=== PATIENT | male | born 1980 | race Caucasian/White ===

== ENCOUNTER 2017-09-30 11:59 | Inpatient (IN) | payer OTHER ==
[2017-09-30] MEDS ORDERED: LORazepam 2 MG/ML SDV IVPUSH ONE (12:15)
[2017-09-30] MEDS ORDERED: Sodium Chloride 0.9% 1,000 ML IV SCH (12:15)
--- NOTE | 2017-09-30 12:18 | EDM.PDOC ---
ED HPI GENERAL MEDICAL PROBLEM - General Chief Complaint: Neuro Symptoms/Deficits Stated Complaint: SLURRED SPEECH Time Seen by Provider: 09/30/17 12:12 Source of Information: Reports: Patient History Limitations: Reports: No Limitations - History of Present Illness INITIAL COMMENTS - FREE TEXT/NARRATIVE: 37-year-old male presents to the ED with reported slurred speech very mild since he awoke on TuesdaySeptember 26. Symptoms have persisted for the most part of the week. He is also appreciated difficulty writing. He can think of the word but he still difficult for him to write the word so that its comprehensible. Patient has had chronic headaches for many months. Worse this last week particularly at the base of his skull. Perhaps mildly blurred vision at times. He is not known to be diabetic. He is known to have hypertension and is not sought treatment or ever been on medication for his blood pressure. Has no known heart disease. Does not smoke cigarettes. States his balance is fine he can drive the car just fine. No nausea vomiting. Does not normally wear eye glasses or contacts. No previous similar problems. States he can drink and eat and swallow normally. He is not losing any fluids out the corner of his face etc. Onset: Sudden Onset Date: 09/26/17 (Awoke with slurred speech and likely stone with thickened with difficulty writing on Tuesday.) Duration: Day(s): Location: Reports: Other (Neurological symptoms) Quality: Reports: Other (Appreciates difficulty with slurred speech at times and difficulty writing.) Severity: Mild Improves with: Reports: None Worsens with: Reports: None Context: Denies: Activity, Exercise, Lifting, Sick Contact, Trauma, Other Associated Symptoms: Reports: Headaches. Denies: Confusion, Chest Pain, Cough, cough w sputum, Diaphoresis, Fever/Chills, Loss of Appetite, Malaise, Nausea/ Vomiting, Rash, Seizure, Shortness of Breath, Syncope, Weakness Treatments [employer]: Reports: Other (see below) (Takes no medications.) Right Neck Pain Score (Numeric/FACES): 3 - Related Data Allergies Allergy/AdvReac Type Severity Reaction Status Date / Time No Known Allergies Allergy Verified 09/30/17 12:56 Home Meds: Home Meds . [No Known Home Meds] 09/30/17 [History] Past Medical History - Past Health History Medical/Surgical History: Denies Medical/Surgical History (He rarely ever sees a doctor.) Social & Family History - Living Situation & Occupation Occupation: Employed ED ROS GENERAL - Review of Systems Review Of Systems: See Below Constitutional: Denies: Fever, Chills, Malaise, Weakness, Fatigue, Night Sweats , Diaphoresis, Decreased Appetite, Weight Loss HEENT: Reports: Vision Change, Other (Appreciates that his tongue feels thick and is not working quite right speech sometimes comes out slurred.). Denies: Glasses, Hearing Loss (States he notices transient changes in vision like it's blurred at times. This is over the last week.) Respiratory: Reports: No Symptoms Cardiovascular: Reports: No Symptoms, Blood Pressure Problem. Denies: Chest Pain, Claudication, Dyspnea on Exertion, Edema, Lightheadedness, Orthopnea (Has been told he has high blood pressure in the past but has never been on medication for this.) Endocrine: Reports: Fatigue GI/Abdominal: Reports: No Symptoms : Reports: No Symptoms Musculoskeletal: Reports: No Symptoms Skin: Reports: No Symptoms Neurological: Reports: Headache (Daily headache currently 3 out of 10 mostly occipital base of skull.). Denies: Dizziness Psychiatric: Reports: Anxiety Hematologic/Lymphatic: Reports: No Symptoms Immunologic: Reports: No Symptoms ED EXAM, NEURO - Physical Exam Exam: See Below Exam Limited By: No Limitations General Appearance: Alert, WD/WN, Anxious (Quite anxious with a sinus tachycardia in the 140s.), Moderate Distress, Other (Initial BP is 265 /148) Eye Exam: Bilateral Eye: A-V [place] (Mild.), Normal Inspection, Papilledema ( no pailledema appreciated. ) Ears: Normal TMs, Other Throat/Mouth: Normal Inspection (There is scar tissue of both tympanic membranes from previous tympanostomy tubes. Right is larger than the left.), Normal Lips, Normal Teeth, Normal Oropharynx Head Exam: Atraumatic, Normocephalic Neck: Normal Inspection, Supple, Non-Tender, Full Range of Motion. No: Carotid Bruit, Lymphadenopathy (L), Lymphadenopathy (R) Respiratory/Chest: Lungs Clear, Normal Breath Sounds, No Accessory Muscle Use, Chest Non-Tender, Respiratory Distress Cardiovascular: No Edema, No Murmur, No Rub, Tachycardia GI/Abdominal: Normal Bowel Sounds, Soft, Non-Tender, No Organomegaly, Other ( Abdominal girth limits ability to palpate solid organs.) Neurological: Alert, Normal Mood/Affect, Normal Dorsiflexion, CN II-XII Intact, Normal Plantar Flexion, Normal Gait, Normal Reflexes, No Motor/Sensory Deficits , Oriented x 3, Other (No pronator drift. [id number] normal.). No: Abnormal Finger to Nose DTR: 2+: Bicep (R), Bicep (L), Achilles (R), Achilles (L), 3+: Patella (R), Patella (L) Back Exam: Normal Inspection, Full Range of Motion. No: CVA Tenderness (L), CVA Tenderness (R) Extremities: Normal Inspection, Normal Range of Motion, Non-Tender, No Pedal Edema Psychiatric: Normal Affect, Normal Mood Skin Exam: Warm, Dry, Intact, Normal Color, No Rash EKG INTERPRETATION EKG Date: 09/30/17 Time: 12:40 Rhythm: Other Rate (Beats/Min): 120 [place]: Normal P-Wave: Enlarged (Left atrial hypertrophy pattern) QRS: Other (Left ventricular hypertrophy pattern with strain.) ST-T: Other (There is an early repolarization pattern in the anterior septal leads likely due to rate.) QT: Normal EKG Interpretation Comments: Abnormal ECG Course - Vital Signs Last Recorded V/S: Last Vital Signs Temp 37.2 C 09/30/17 12:04 Pulse 97 09/30/17 13:40 Resp 21 H 09/30/17 12:04 BP 177/116 H 09/30/17 13:40 Pulse Ox 98 09/30/17 12:04 - Orders/Labs/Meds Orders: Active Orders 24 hr Category Date Time Status Admission Status [Patient Status] [ADT] Routine ADT 09/30/17 14:32 Ordered EKG Documentation Completion [RC] STAT Care 09/30/17 12:14 Active URINALYSIS W/MICROSCOPIC [UA W/MICROSCOPIC] [URIN] Stat Lab 09/30/17 12:14 Uncollected Labetalol [Normodyne] 100 mg Med 09/30/17 13:00 Active Sodium Chloride 0.9% [Normal Saline] 80 ml IV ASDIRECTED Sodium Chloride 0.9% [Normal Saline] 1,000 ml Med 09/30/17 12:15 Active IV ASDIRECTED Medication Orders Sodium Chloride (Normal Saline) 1,000 mls @ 100 mls/hr IV ASDIRECTED COLEMAN Last Admin: 09/30/17 12:28 Dose: 100 mls/hr Labetalol HCl 100 mg/ Sodium (Chloride) 100 mls @ 60 mls/hr IV ASDIRECTED COLEMAN PRN Reason: 1 MG/MIN Last Admin: 09/30/17 13:12 Dose: 1 mg/min, 60 mls/hr Labs: Laboratory Tests 09/30/17 09/30/17 09/30/17 Range/Units 12:26 12:26 12:26 WBC 12.20 H (4.23-9.07) K/mm3 RBC 5.77 (4.63-6.08) M/mm3 Hgb 15.6 (13.7-17.5) gm/L Hct 45.2 (40.1-51.0) % MCV 78.3 L (79.0-92.2) fl MCH 27.0 (25.7-32.2) pg MCHC 34.5 (32.2-35.5) g/dl RDW Std Deviation 40.9 (35.1-43.9) fL Plt Count 303 (163-337) K/mm3 MPV 10.1 (9.4-12.3) fl Neutrophils % (Manual) 67 H (40-60) % Band Neutrophils % 0 (0-10) % Lymphocytes % (Manual) 28 (20-40) % Atypical Lymphs % 0 % Monocytes % (Manual) 2 (2-10) % Eosinophils % (Manual) 3 (0.8-7.0) % Basophils % (Manual) 0 L (0.2-1.2) Platelet Estimate Adequate RBC Morph Comment Normal Sodium 141 (136-145) mEq/L Potassium 3.7 (3.5-5.1) mEq/L Chloride 104 (98-107) mEq/L Carbon Dioxide 25 (21-32) mEq/L Anion Gap 15.7 H (5-15) BUN 16 (7-18) mg/dL Creatinine 1.1 (0.7-1.3) mg/dL Est Cr Clr Drug Dosing 82.97 mL/min Estimated GFR (MDRD) > 60 (>60) mL/min BUN/Creatinine Ratio 14.5 (14-18) Glucose 120 H (74-106) mg/dL Calcium 9.4 (8.5-10.1) mg/dL Total Bilirubin 0.4 (0.2-1.0) mg/dL AST 24 (15-37) U/L ALT 54 (16-63) U/L Alkaline Phosphatase 85 (46-116) U/L CK-MB (CK-2) 0.8 (0-3.6) ng/ml Troponin I 0.125 H* (0.00-0.056) ng/mL NT-Pro-B Natriuret Pep 158 H (0-125) pg/mL Total Protein 8.3 H (6.4-8.2) g/dl Albumin 4.2 (3.4-5.0) g/dl Globulin 4.1 gm/dL Albumin/Globulin Ratio 1.0 (1-2) TSH 3rd Generation (0.358-3.74) uIU/mL 09/30/17 Range/Units 12:26 WBC (4.23-9.07) K/mm3 RBC (4.63-6.08) M/mm3 Hgb (13.7-17.5) gm/L Hct (40.1-51.0) % MCV (79.0-92.2) fl MCH (25.7-32.2) pg MCHC (32.2-35.5) g/dl RDW Std Deviation (35.1-43.9) fL Plt Count (163-337) K/mm3 MPV (9.4-12.3) fl Neutrophils % (Manual) (40-60) % Band Neutrophils % (0-10) % Lymphocytes % (Manual) (20-40) % Atypical Lymphs % % Monocytes % (Manual) (2-10) % Eosinophils % (Manual) (0.8-7.0) % Basophils % (Manual) (0.2-1.2) Platelet Estimate RBC Morph Comment Sodium (136-145) mEq/L Potassium (3.5-5.1) mEq/L Chloride (98-107) mEq/L Carbon Dioxide (21-32) mEq/L Anion Gap (5-15) BUN (7-18) mg/dL Creatinine (0.7-1.3) mg/dL Est Cr Clr Drug Dosing mL/min Estimated GFR (MDRD) (>60) mL/min BUN/Creatinine Ratio (14-18) Glucose (74-106) mg/dL Calcium (8.5-10.1) mg/dL Total Bilirubin (0.2-1.0) mg/dL AST (15-37) U/L ALT (16-63) U/L Alkaline Phosphatase (46-116) U/L CK-MB (CK-2) (0-3.6) ng/ml Troponin I (0.00-0.056) ng/mL NT-Pro-B Natriuret Pep (0-125) pg/mL Total Protein (6.4-8.2) g/dl Albumin (3.4-5.0) g/dl Globulin gm/dL Albumin/Globulin Ratio (1-2) TSH 3rd Generation 2.481 (0.358-3.74) uIU/mL Meds: Medications Generic Name Dose Route Start Last Admin Trade Name Freq PRN Reason Stop Dose Admin Sodium Chloride 1,000 mls @ 100 mls/hr 09/30/17 12:15 09/30/17 12:28 Normal Saline IV 100 mls/hr ASDIRECTED COLEMAN Administration Labetalol HCl 100 mg/ Sodium 100 mls @ 60 mls/hr 09/30/17 13:00 09/30/17 13: 12 Chloride IV 1 mg/min ASDIRECTED COLEMAN 60 mls/hr 1 MG/MIN Administration Discontinued Medications Generic Name Dose Route Start Last Admin Trade Name Freq PRN Reason Stop Dose Admin Amlodipine Besylate 10 mg 09/30/17 12:52 09/30/17 13:03 Norvasc PO 09/30/17 12:53 10 mg ONETIME ONE Administration Labetalol HCl 20 mg 09/30/17 12:53 09/30/17 13:04 Normodyne IVPUSH 09/30/17 12:54 20 mg ONETIME ONE Administration Protocol Lorazepam 1 mg 09/30/17 12:15 09/30/17 12:31 Ativan IVPUSH 09/30/17 12:16 1 mg ONETIME ONE Administration - Radiology Interpretation Free Text/Narrative:: 37-year-old male presents to the ED with reported slurred speech and difficulty writing for the last 5 days. He woke with symptoms on September 26 and symptoms of been more or less persistent. Has chronic headaches particularly at the base of his skull. He is quite anxious upon arrival with a resting heart rate of 1 44/m sinus tachycardia in the monitor. Her pressures to 60 12/28/47 suggesting hypertensive crises. Neuro exam is completely normal. He will be for head CT. Ativan 1 mg will be given IV for anxiety relief and then we'll see where his blood pressure drifts down too. He has for routine labs as well as urinalysis and ECG and chest x-ray. Suspect current symptoms are secondary to uncontrolled hypertension. - Re-Assessments/Exams Free Text/Narrative Re-Assessment/Exam: 09/30/17 12:45: CT head is within normal limits showing no sign of ischemia midline shift or intracranial bleed. When he returned from the CT suite his heart rate is now 1 14/m BP is 202/120. I still believe that he suffering malignant hypertension and current neuro symptoms are secondary to uncontrolled hypertension. I will give him Norvasc 10 mg orally. He will be started on labetalol 20 mg IV push then labetalol drip at 1 mg/m. Ideally like to achieve a blood pressure of 160-170 systolically and around 100 diastolically. 09/30/17 13:21 Current blood pressure is 165 /106. Heart rate is down to 104/ min.. Patient reports that his headache is pre-well gone with blood pressure controlled as well. I will get him to write in a short period of time to see if his writing ability has returned to normal as well 09/30/17 13:54 BP remains 169/106. Heart rate is 95 and sinus.Lab reveals a white count of 12.20 differential pending. Hemoglobin is 15.6 with hematocrit of 45.2. MCV is slightly low at 78.3 suggesting iron deficiency. Sodium is 141 potassium is 3.7. Chloride was 104 bicarbonate is 25. Anion gap is mildly elevated at 15.7. BUN is 16. Creatinine is 1.1. Glucose is 120. Calcium is 9.4 bilirubin 0.4. AST is 24 ALT is 54 alkaline phosphatase is 85. CK-MB fraction is 0.8 troponin is elevated at 0.125 which is 2 times normal . BNP is 158. Total protein is 8.3 albumin fraction normal at 4.2. Suspect elevated troponin is a stress response as he has had no chest pains. 09/30/17 14:18 Spoke with chain builder loom control hospitalist Dr. Ranada and he has accepted the patient. He will go to the intensive care unit as he is still on the labetalol drip to control his hypertension. Departure - Departure Time of Disposition: 14:35 Disposition: Admitted As Inpatient 66 Condition: Serious Clinical Impression: Malignant hypertension, Elevated troponin I level - Discharge Information Referrals: PCP,None [Primary Care Provider] - Forms: ED Department Discharge - My Orders Last 24 Hours: My Active Orders 09/30/17 12:14 EKG Documentation Completion [RC] STAT URINALYSIS W/MICROSCOPIC [UA W/MICROSCOPIC] [URIN] Stat 09/30/17 12:15 Sodium Chloride 0.9% [Normal Saline] 1,000 ml IV ASDIRECTED 09/30/17 13:00 Labetalol [Normodyne] 100 mg Sodium Chloride 0.9% [Normal Saline] 80 ml IV ASDIRECTED 09/30/17 14:32 Admission Status [Patient Status] [ADT] Routine - Assessment/Plan Last 24 Hours: My Active Orders 09/30/17 12:14 EKG Documentation Completion [RC] STAT URINALYSIS W/MICROSCOPIC [UA W/MICROSCOPIC] [URIN] Stat 09/30/17 12:15 Sodium Chloride 0.9% [Normal Saline] 1,000 ml IV ASDIRECTED 09/30/17 13:00 Labetalol [Normodyne] 100 mg Sodium Chloride 0.9% [Normal Saline] 80 ml IV ASDIRECTED 09/30/17 14:32 Admission Status [Patient Status] [ADT] Routine
--- NOTE | 2017-09-30 12:50 | CT ---
Head CT Technique: Multiple axial sections through the brain were obtained. Intravenous contrast was not utilized. Comparison: No previous intracranial imaging. Findings: Ventricles along with basal cisterns and sulci over convexities are within normal limits for the patient's age. No abnormal parenchymal densities are seen. No evidence of intracranial hemorrhage. No midline shift or mass effect is seen. Bone window settings were reviewed which shows no acute calvarial abnormality. Visualized sinuses are clear. Impression: 1. Nothing acute is identified on noncontrast head CT exam. Given the patient's age and symptoms, MRI could be considered to further evaluate. Diagnostic code #1
[2017-09-30] MEDS ORDERED: amLODIPine 10 MG Tab PO ONE (12:52)
[2017-09-30] MEDS ORDERED: Labetalol 100 MG/20 ML MDV IVPUSH ONE (12:53)
[2017-09-30] MEDS: Labetalol 100 MG in Sodium Chloride 0.9% 80 ML IV SCH ×3 (13:12→19:16)
--- NOTE | 2017-09-30 14:14 | CR ---
Chest: Portable view of the chest was obtained. Comparison: No prior chest x-ray. Heart size and mediastinum are normal. Lungs are clear. Bony structures are grossly intact. Impression: 1. Nothing acute is identified on portable chest x-ray. Diagnostic code #1
--- NOTE | 2017-09-30 15:25 | PCM.HP ---
H&P History of Present Illness - General Date of Service: 09/30/17 Admit Problem/Dx: Admission Diagnosis/Problem Admission Diagnosis/Problem Malignant hypertension Source of Information: Patient, Old Records, Provider, RN, RN Notes Reviewed History Limitations: Reports: No Limitations - History of Present Illness Initial Comments - Free Text/Narative: Bright Reed is a 37 yo male who presented to our ED today (09/30/17) with reported slurred speech that began on the morning of September 26. The slurred speech has been very mild. Symptoms have persisted for most of the week and he's also noted some difficulty writing. He states he can think of a word but it is difficult for him to write it down and be comprehensible. He's had chronic headaches for many months but reports they have increased in severity over the last week particularly at the base of his skull. He also reports some mildly blurred vision at times. He is not known to be a diabetic. He does have known hypertension but does not seek treatment. He has been on medication for his blood pressure, but he stopped taking them about 5 years ago. No history of known heart disease. He does not smoke cigarettes but he does chew around one can a day. Denies any difficulty with balance, nausea, or vomiting. Does not wear eyeglasses or contacts. No previous similar symptoms. No difficulty with eating or drinking and can swallow normally. He denies any fluid or food coming out the corners of his mouth while eating. In the ED temperature 37.2 Celsius. Pulse was initially very high at 144 bpm. Blood pressure was extremely high at 265/148. Respirations are 21 and pulse ox 90% on room air. 12 Lead EKG was obtained and shows sinus tachycardia at a rate of 120 bpm. There is a left atrial hypertrophy pattern and left ventricular hypertrophy pattern with strain noted. There is also an early repolarization pattern in the anteroseptal leads, likely due to the high rate. Labs are obtained: WBCs are elevated at 12.20. Hemoglobin is good at 15.6. Hematocrit 45.2. He is microcytic. Pulse are good at 303,000. Neutrophils are elevated at 67%. There is no bandemia. Sodium is 141. Potassium was also low end of normal at 3.7. Chloride 104. Carbon dioxide 25. Gap is slightly high at 15.7. BUN is 16. Creatinine is 1.1. EGFR greater than 60. Glucose is elevated at 120. Calcium 9.4. Total bilirubin 0.4. Liver enzymes were good with AST at 24, ALT at 54, alkaline phosphatase of 85. CK-MB was found to be 0.8. Troponin elevated at 0.125. ProBNP was 158. Protein was high at 8.3. Albumin 4.2. TSH was found to be normal at 2.481. Neuro exam was conducted and found to be completely normal. He was very anxious and 1 mg Ativan was given for anxiety. Urinalysis was ordered and was negative. Trace protein was noted however. Chest x-ray was obtained and shows nothing acute. CT scan of the head was obtained and interpreted by Dr. Buckley as "1. Nothing acute is identified on noncontrast head CT exam. Given the patient's age and symptoms, MRI could be considered to further evaluate." Hie was given Norvasc 10 mg PO and IVP labetalol was given. A labetalol drip was started with a goal blood pressure 160-170 systolically around 100 diastolically. The patient's headache did improve with blood pressure control. He did report improved writing ability as well. His blood pressure remained around 169/106 when he was admitted. He reports hx/o hypertension but stopped his medications about 5 years ago because he lost a significant amount of weight (purposefully). He reports that he rarely sees a physician. He is a nonsmoker, although he does chew about 1 can per day. He subsequently admitted to the ICU. He is a full code. He does not have a local PCP. Onset of Symptoms: Reports: Sudden Symptom Onset Date: 09/26/17 (awoke with slurred speach and difficulty writing on tuesday morning ) Duration of Symptoms: Reports: Day(s): Location: Reports: Other (neurological symptoms ) Quality: Reports: Other (difficulty with slurred speach at times and difficulty writing ) Severity: Mild Improves with: Reports: None Worsens with: Reports: None Context: Denies: Sick Contact, Activity/Exercise, Lifting, Exertion, Rest, Trauma, Travel Associated Symptoms: Reports: Headaches. Denies: Confusion, Chest Pain, Cough, cough w sputum, Diaphoresis, Fever/Chills, Loss of Appetite, Malaise, Nausea/ Vomiting, Rash, Seizure, Shortness of Breath, Syncope, Weakness Right Neck Pain Score (Numeric/FACES): 3 - Related Data Allergies/Adverse Reactions: Allergies Allergy/AdvReac Type Severity Reaction Status Date / Time No Known Allergies Allergy Verified 09/30/17 16:34 Home Medications: Home Meds . [No Known Home Meds] 09/30/17 [History] Past Medical History - Past Health History Medical/Surgical History: Denies Medical/Surgical History (He rarely ever sees a doctor.) Cardiovascular History: Reports: Hypertension - Past Surgical History GI Surgical History: Reports: Hernia Repair/Other Social & Family History - Family History Cardiac: Reports: Hypertension, [place] Other Cardiac Family History: Patient states his mother's side, mother included , have hx of HTN and RI - Tobacco Use Smoking Status *Q: Never Smoker - Recreational Drug Use Recreational Drug Use: No - Living Situation & Occupation Occupation: Employed H&P Review of Systems - Review of Systems: Review Of Systems: See Below General: Reports: Weight Gain (over past several years ). Denies: Fever, Chills , Malaise, Weakness, Fatigue, Night Sweats, Decreased Appetite, Weight Loss HEENT: Reports: Headaches (at base of head, although gone now ), Visual Changes (occasionally blurry), Other (Reported tongue feeling thick in ED but this has resolved now.). Denies: Ear Pain, Eye Pain, Hearing Changes, Rhinitis, Sinus Congestion, Sore Throat, Vertigo Pulmonary: Reports: No Symptoms. Denies: Shortness of Breath, Wheezing, Pleuritic Chest Pain, Cough, Sputum Cardiovascular: Reports: Blood Pressure Problem (treated for this in the past but stopped medications about 5 years ago). Denies: Chest Pain, Palpitations, Dyspnea on Exertion, Orthopnea, Edema, Lightheadedness, Syncope, Claudication Gastrointestinal: Reports: No Symptoms. Denies: Abdominal Pain, Constipation, Diarrhea, Decreased Appetite, Difficulty Swallowing, Hematemesis, Hematochezia, Melena, Nausea, Vomiting Genitourinary: Reports: No Symptoms. Denies: Dysuria, Frequency, Burning, Pain , Urgency, Incontinence, Discharge, Retention, Other (No ED symptoms) Musculoskeletal: Reports: No Symptoms. Denies: Neck Pain, Shoulder Pain, Arm Pain, Back Pain, Hand Pain, Leg Pain, Foot Pain, Joint Pain, Joint Swelling, Muscle Pain, Muscle Stiffness Skin: Reports: No Symptoms Psychiatric: Reports: Anxiety. Denies: Confusion, Depression, Hallucinations Neurological: Reports: No Symptoms, Headache (at base of skull but gone now ), Trouble Speaking (still occasionally feels like his speech is slurred, although improved from before ). Denies: Confusion, Dizziness, Numbness, Paresthesia, Pre-Existing Deficit, Syncope, Tingling, Tremors, Difficulty Walking, Weakness, Change in Speech, Gait Disturbance Hematologic/Lymphatic: Reports: No Symptoms. Denies: Anemia, Easy Bleeding, Easy Bruising Immunologic: Reports: No Symptoms Exam - Exam Exam: See Below - Vital Signs Vital Signs: Last Vital Signs Temp 98.9 F 09/30/17 12:04 Pulse 97 09/30/17 13:40 Resp 21 H 09/30/17 12:04 BP 177/116 H 09/30/17 13:40 Pulse Ox 98 09/30/17 12:04 Weight: 265 lb - Exam Quality Assessment: Other (obese ) General: Alert, Oriented, Cooperative. No: Mild Distress HEENT: Conjunctiva Clear, EACs Clear, EOMI, Hearing Intact, Mucosa Moist & [place] , Nares Patent, Normal Nasal Septum, Posterior Pharynx Clear, TMs Clear, Other ( mild AV nicking on opthalmoscopy, no papilledema or hemorrhages noted), PERRLA Neck: Supple, Trachea Midline. No: JVD, Thyromegaly Lungs: Clear to Auscultation, Normal Respiratory Effort. No: Rales, Rhonchi, Rub, Stridor, Wheezing Cardiovascular: Regular Rate, Regular Rhythm GI/Abdominal Exam: Normal Bowel Sounds, Soft, Non-Tender, No Organomegaly, No Distention, No Abnormal Bruit, No Mass, Pelvis Stable (Male) Exam: Deferred Rectal (Males) Exam: Deferred Back Exam: Normal Inspection, Full Range of Motion Extremities: Normal Inspection, Normal Range of Motion, Non-Tender, No Pedal Edema, Normal Capillary Refill Peripheral Pulses: 3+: Posterior Tibial (L), Posterior Tibial (R), Dorsalis Pedis (L), Dorsalis Pedis (R), 4+: Radial (L), Radial (R) Skin: Warm, Dry, Intact Neurological: Cranial Nerves Intact, Strength Equal Bilateral, Normal Speech, Normal Tone, Sensation Intact Neuro Extensive - Mental Status: Alert, Oriented x3, Normal Mood/Affect, Normal Cognition, Memory Intact Neuro Extensive - Motor, Sensory, Reflexes: CN II-XII Intact. No: Tongue Deviation (L), Tongue Deviation (R), Dysarthria, Receptive Aphasia, Facial palsy (L), Facial Palsy (R), Abnormal Sensation, Tremor Psychiatric: Alert, Normal Affect, Normal Mood - Patient Data Result Diagrams: 09/30/17 12:26 09/30/17 18:28 *Q Meaningful Use (ADM) - VTE *Q VTE Criteria *Q: - Stroke *Q Stroke Criteria *Q: - AMI *Q AMI Criteria *Q: - Problem List (1) Malignant hypertension SNOMED Code(s): 55188890 ICD Code: I10 - ESSENTIAL (PRIMARY) HYPERTENSION Status: Acute Priority: High Current Visit: Yes (2) Elevated troponin I level SNOMED Code(s): 283437138 ICD Code: R74.8 - ABNORMAL LEVELS OF OTHER SERUM ENZYMES Status: Acute Priority: High Current Visit: Yes (3) Obesity, Class III, BMI 40-49.9 (morbid obesity) SNOMED Code(s): 542582050 ICD Code: E66.01 - MORBID (SEVERE) OBESITY DUE TO EXCESS CALORIES Status: Chronic Priority: Medium Current Visit: Yes (4) Tobacco use disorder SNOMED Code(s): 680241976 ICD Code: F17.200 - NICOTINE DEPENDENCE, UNSPECIFIED, UNCOMPLICATED Status : Chronic Priority: Low Current Visit: Yes Problem List Initiated/Reviewed/Updated: Yes Orders Last 24hrs: Medication Orders Sodium Chloride (Normal Saline) 1,000 mls @ 100 mls/hr IV ASDIRECTED [facility] Last Admin: 09/30/17 12:28 Dose: 100 mls/hr Labetalol HCl 100 mg/ Sodium (Chloride) 100 mls @ 60 mls/hr IV ASDIRECTED [facility] PRN Reason: 1 MG/MIN Last Admin: 09/30/17 13:12 Dose: 1 mg/min, 60 mls/hr Assessment/Plan Comment:: I/P: Malignant HTN -BP 265/148 in ED - 194/127 initially on floor -Reported headache, blurry vision, slurred speech, difficulty writing over past week or so -Dx'ed with HTN in high school, was medicated for awhile (1 med) stopped taking 5 yrs ago -Head CT negative -Trace urine protein - UA otherwise negative -Given 20mg IVP labetalol, 10mg amlodipine PO and IV drip labetalol started -Continue labetalol drip -Differential includes primary hyperaldosteronism and phenochromocytoma -BP check Q1hr -Potassium on low end of normal (3.7) - repeat BMP tonight -TSH 2.481 - Free T4 ordered -UDS negative -Denies licorice, supplements, drug use, excessive caffeine or energy drinks. -24-hour urine metanephrines ordered -Morning aldosterone level ordered -Morning renin/aldosterone ratio ordered -Morning renin activity ordered -Start catapress 0.3mg patch -Slowly decrease BP over next 3-4 days -Low sodium diet Elevated troponin -Denies CP, palpitations, SOB -Troponin 0.125 in ED - repeat in AM -CK-MB 0.8 -Likely due to demand ischemia -12-lead in ED shows sinus tachycardia with LVH and MYRA patterns -Echo if possible -Reports strong family history of cardiac disease Chronic: Tobacco use disorder -Chews around one can of tobacco daily -Tobacco cessation counseling -Nicotine patch as ordered Obesity -BMI 42.8 -"Biggest he has ever been now" -Glucose 120 - A1C ordered -Fighting Vehicle Infantryman consult -Discussed importance of healthy weight Plan: CM for discharge planning - likely 3-4 day stay He is ambulatory - will hold off PT for now DVT/PE prophylaxis: ELIZABETH gurrola Other orders as indicated above Routine AM labs Code status:Full code; PCP: he does not have a PCP and primarily resides in [place] - will need to establish
[2017-09-30] MEDS ORDERED: Ondansetron 4 MG Tab.DIS PO PRN (16:44)
[2017-09-30] MEDS ORDERED: Ondansetron 4 MG/2 ML SDV IV PRN (16:44)
[2017-09-30] MEDS ORDERED: Acetaminophen 325 MG Tab PO PRN (16:44)
[2017-09-30] MEDS ORDERED: cloNIDine 0.3 MG/Day Transdermal Patch TRDERM SCH (17:00)
[2017-09-30] MEDS ORDERED: LORazepam 0.5 MG Tab PO PRN (17:01)
[2017-09-30] MEDS ORDERED: Potassium Chloride 20 MEQ Tab.ER PO SCH (18:00)
[2017-09-30] MEDS ORDERED: Temazepam 30 MG Cap PO PRN (21:41)
[2017-09-30] MEDS ORDERED: Metoprolol Tartrate 5 MG/5 ML SDV IVPUSH PRN (21:42)
[2017-09-30] MEDS ORDERED: LORazepam 2 MG/ML SDV IVPUSH PRN ×2 (21:42)
[2017-10-01] MEDS: hydrALAZINE 20 MG/ML SDV IVPUSH PRN ×2 (05:11→10:48)
--- NOTE | 2017-10-01 08:20 | PCM.PN ---
- General Info Date of Service: 10/01/17 Admission Dx/Problem (Free Text): Admission Diagnosis/Problem Admission Diagnosis/Problem Malignant hypertension Subjective Update: Follow Up Functional Status: Reports: Pain Controlled, Tolerating Diet, Ambulating, Urinating. Denies: New Symptoms - Review of Systems General: Denies: Fever, Weakness, Fatigue, Malaise, Chills HEENT: Denies: Ear Pain, Eye Pain, Headaches, Visual Changes Pulmonary: Denies: Shortness of Breath Cardiovascular: Denies: Chest Pain Gastrointestinal: Denies: Abdominal Pain, Nausea, Vomiting Genitourinary: Reports: No Symptoms Musculoskeletal: Reports: No Symptoms Skin: Reports: No Symptoms Neurological: Denies: Confusion, Dizziness, Numbness, Paresthesia, Pre-Existing Deficit, Seizure, Syncope, Tingling, Tremors, Trouble Speaking, Difficulty Walking, Weakness, Change in Speech, Gait Disturbance Psychiatric: Denies: Depression, Mood Lability, Anxiety, Agitation, Cravings, Hallucinations, Suicidal Ideation, Homicidal Ideation Systems Review Comment:: No significant overnight or acute issues. He slept good and reports no neuro- like complaints. His BPs overall have been < 220/120. His labetolol drip was d/c 'd last night. He has no complaints this morning. - Patient Data Vitals - Most Recent: Last Vital Signs Temp 36.6 C 10/01/17 04:00 Pulse 88 09/30/17 19:16 Resp 16 10/01/17 06:00 BP 136/83 10/01/17 07:00 Pulse Ox 98 10/01/17 06:10 Weight - Most Recent: 119.068 kg I&O - Last 24 Hours: Intake & Output 09/30/17 10/01/17 10/01/17 22:59 06:59 14:59 Intake Total 1000 1094 Output Total 200 1575 Balance 800 -481 Lab Results Last 24 Hours: Laboratory Results - last 24 hr 09/30/17 09/30/17 10/01/17 Range/Units 14:50 18:28 05:40 WBC 9.53 H (4.23-9.07) K/mm3 RBC 5.01 (4.63-6.08) M/mm3 Hgb 13.8 (13.7-17.5) gm/L Hct 40.3 (40.1-51.0) % MCV 80.4 (79.0-92.2) fl MCH 27.5 (25.7-32.2) pg MCHC 34.2 (32.2-35.5) g/dl RDW Std Deviation 41.8 (35.1-43.9) fL Plt Count 287 (163-337) K/mm3 MPV 10.6 (9.4-12.3) fl Neut % (Auto) 59.8 (34.0-67.9) % Lymph % (Auto) 26.2 (21.8-53.1) % Cotton % (Auto) 9.4 (5.3-12.2) % Eos % (Auto) 3.9 (0.8-7.0) Baso % (Auto) 0.3 (0.1-1.2) % Neut # (Auto) 5.69 H (1.78-5.38) K/mm3 Lymph # (Auto) 2.50 (1.32-3.57) K/mm3 Cotton # (Auto) 0.90 H (0.30-0.82) K/mm3 Eos # (Auto) 0.37 (0.04-0.54) K/mm3 Baso # (Auto) 0.03 (0.01-0.08) K/mm3 Sodium 141 (136-145) mEq/L Potassium 3.7 (3.5-5.1) mEq/L Chloride 105 (98-107) mEq/L Carbon Dioxide 25 (21-32) mEq/L Anion Gap 14.7 (5-15) BUN 14 (7-18) mg/dL Creatinine 1.1 (0.7-1.3) mg/dL Est Cr Clr Drug Dosing 82.97 mL/min Estimated GFR (MDRD) > 60 (>60) mL/min BUN/Creatinine Ratio 12.7 L (14-18) Glucose 109 H (74-106) mg/dL Calcium 8.7 (8.5-10.1) mg/dL Magnesium (1.8-2.4) mg/dl CK-MB (CK-2) (0-3.6) ng/ml Troponin I (0.00-0.056) ng/mL Free T4 1.10 (0.76-1.46) ng/dL Urine Opiates Screen Negative (NEGATIVE) Ur Buprenorphine Scrn Negative (NEGATIVE) Ur Oxycodone Screen Negative (NEGATIVE) Urine Methadone Screen Negative (NEGATIVE) Ur Propoxyphene Screen Negative (NEGATIVE) Ur Barbiturates Screen Negative (NEGATIVE) Ur Tricyclics Screen Negative (NEGATIVE) Ur Phencyclidine Scrn Negative (NEGATIVE) Ur Amphetamine Screen Negative (NEGATIVE) U Methamphetamines Scrn Negative (NEGATIVE) U Benzodiazepines Scrn Negative (NEGATIVE) U Cocaine Metab Screen Negative (NEGATIVE) U Marijuana (THC) Screen Negative (NEGATIVE) 10/01/17 Range/Units 05:40 WBC (4.23-9.07) K/mm3 RBC (4.63-6.08) M/mm3 Hgb (13.7-17.5) gm/L Hct (40.1-51.0) % MCV (79.0-92.2) fl MCH (25.7-32.2) pg MCHC (32.2-35.5) g/dl RDW Std Deviation (35.1-43.9) fL Plt Count (163-337) K/mm3 MPV (9.4-12.3) fl Neut % (Auto) (34.0-67.9) % Lymph % (Auto) (21.8-53.1) % Cotton % (Auto) (5.3-12.2) % Eos % (Auto) (0.8-7.0) Baso % (Auto) (0.1-1.2) % Neut # (Auto) (1.78-5.38) K/mm3 Lymph # (Auto) (1.32-3.57) K/mm3 Cotton # (Auto) (0.30-0.82) K/mm3 Eos # (Auto) (0.04-0.54) K/mm3 Baso # (Auto) (0.01-0.08) K/mm3 Sodium 139 (136-145) mEq/L Potassium 3.5 (3.5-5.1) mEq/L Chloride 104 (98-107) mEq/L Carbon Dioxide 23 (21-32) mEq/L Anion Gap 15.5 H (5-15) BUN 12 (7-18) mg/dL Creatinine 1.0 (0.7-1.3) mg/dL Est Cr Clr Drug Dosing 91.27 mL/min Estimated GFR (MDRD) > 60 (>60) mL/min BUN/Creatinine Ratio 12.0 L (14-18) Glucose 103 (74-106) mg/dL Calcium 8.8 (8.5-10.1) mg/dL Magnesium 2.1 (1.8-2.4) mg/dl CK-MB (CK-2) 0.7 (0-3.6) ng/ml Troponin I 0.105 H* (0.00-0.056) ng/mL Free T4 (0.76-1.46) ng/dL Urine Opiates Screen (NEGATIVE) Ur Buprenorphine Scrn (NEGATIVE) Ur Oxycodone Screen (NEGATIVE) Urine Methadone Screen (NEGATIVE) Ur Propoxyphene Screen (NEGATIVE) Ur Barbiturates Screen (NEGATIVE) Ur Tricyclics Screen (NEGATIVE) Ur Phencyclidine Scrn (NEGATIVE) Ur Amphetamine Screen (NEGATIVE) U Methamphetamines Scrn (NEGATIVE) U Benzodiazepines Scrn (NEGATIVE) U Cocaine Metab Screen (NEGATIVE) U Marijuana (THC) Screen (NEGATIVE) Med Orders - Current: Current Medications Acetaminophen (Tylenol) 650 mg PO Q4H PRN PRN Reason: Pain (Mild 1-3)/fever Clonidine HCl (Catapres-Tts 3) 0.3 mg TRDERM Q7D [facility] Last Admin: 09/30/17 17:50 Dose: 0.3 mg Hydralazine HCl (Apresoline) 20 mg IVPUSH Q4H PRN PRN Reason: Hypertension Last Admin: 10/01/17 05:11 Dose: 20 mg Labetalol HCl 100 mg/ Sodium (Chloride) 100 mls @ 60 mls/hr IV ASDIRECTED [facility] PRN Reason: 1 MG/MIN Last Infusion: 09/30/17 20:41 Dose: 0 mg/min, 0 mls/hr Lorazepam (Ativan) 0.5 mg PO Q6H PRN PRN Reason: Anxiety Lorazepam (Ativan) 2 mg IVPUSH Q4H PRN PRN Reason: Seizures Lorazepam (Ativan) 1 mg IVPUSH Q6H PRN; Protocol PRN Reason: Anxiety Magnesium Sulfate (Pharmacy To Dose - Magnesium Replacement) 1 dose .XX ASDIRECTED [facility] Metoprolol Tartrate (Lopressor) 5 mg IVPUSH Q4H PRN PRN Reason: Tachycardia Miscellaneous Information (Remove Patch) 1 ea TRDERM Fr@1700 [facility] Miscellaneous Information (Remove Patch) 1 ea TRDERM DAILY [facility] Nicotine (Habitrol) 7 mg TRDERM DAILY [facility] Ondansetron HCl (Zofran Odt) 4 mg PO Q6H PRN PRN Reason: nausea, able to take PO Ondansetron HCl (Zofran) 4 mg IV Q6H PRN PRN Reason: Nausea/Vomiting Potassium Chloride (Pharmacy To Dose - Potassium Replacement) 1 dose .XX ASDIRECTED [facility] Potassium Chloride (Klor-Con M20) 40 meq PO Q4H [facility] Stop: 10/01/17 12:16 Temazepam (Restoril) 30 mg PO BEDTIME PRN PRN Reason: Insomnia Discontinued Medications Amlodipine Besylate (Norvasc) 10 mg PO ONETIME ONE Stop: 09/30/17 12:53 Last Admin: 09/30/17 13:03 Dose: 10 mg Sodium Chloride (Normal Saline) 1,000 mls @ 100 mls/hr IV ASDIRECTED [facility] Last Admin: 09/30/17 12:28 Dose: 100 mls/hr Labetalol HCl (Normodyne) 20 mg IVPUSH ONETIME ONE PRN Reason: Protocol Stop: 09/30/17 12:54 Last Admin: 09/30/17 13:04 Dose: 20 mg Lorazepam (Ativan) 1 mg IVPUSH ONETIME ONE Stop: 09/30/17 12:16 Last Admin: 09/30/17 12:31 Dose: 1 mg Magnesium Sulfate (Pharmacy To Dose - Magnesium Replacement) 1 dose .XX ASDIRECTED [facility] Potassium Chloride (Pharmacy To Dose - Potassium Replacement) 1 dose .XX ASDIRECTED [facility] Potassium Chloride (Klor-Con M20) 40 meq PO Q4H [facility] Stop: 09/30/17 22:01 - Exam General: Alert, Oriented, Cooperative, No Acute Distress, Other (Obese) HEENT: Pupils Equal, Pupils Reactive, EOMI, Mucous Membr. Moist/[place]: Supple, Trachea Midline, No JVD, No Thyromegaly Lungs: Clear to Auscultation, Normal Respiratory Effort Cardiovascular: Regular Rate, Regular Rhythm GI/Abdominal Exam: Normal Bowel Sounds, Soft, Non-Tender, No Organomegaly, No Distention, No Abnormal Bruit, No Mass (Male) Exam: Deferred Back Exam: Normal Inspection, Full Range of Motion Extremities: Normal Inspection, Normal Range of Motion, Non-Tender, No Pedal Edema, Normal Capillary Refill Peripheral Pulses: 3+: Posterior Tibial (L), Posterior Tibial (R), Dorsalis Pedis (L), Dorsalis Pedis (R) Skin: Warm, Dry, Intact Neurological: No New Focal Deficit Psy/Mental Status: Alert, Normal Affect, Normal Mood - Problem List Review Problem List Initiated/Reviewed/Updated: Yes - My Orders Last 24 Hours: My Active Orders 09/30/17 21:41 Temazepam [Restoril] 30 mg PO BEDTIME PRN 09/30/17 21:42 LORazepam [Ativan] 1 mg IVPUSH Q6H PRN LORazepam [Ativan] 2 mg IVPUSH Q4H PRN Metoprolol Tartrate [Lopressor] 5 mg IVPUSH Q4H PRN hydrALAZINE [Apresoline] 20 mg IVPUSH Q4H PRN 09/30/17 21:45 Potassium Rep Pharmacy to Dose [Pharmacy to Dose - Potassium Replacement] 1 dose .XX ASDIRECTED 10/01/17 08:15 Potassium Chloride [Klor-Con M20] 40 meq PO Q4H 10/02/17 09:00 Remove Patch 1 ea TRDERM DAILY 10/07/17 17:00 Remove Patch 1 ea TRDERM Fr@1700 - Plan Plan:: I/P: Acute: Malignant HTN, Improved -BP 265/148 in ED - 194/127 initially on floor -Reported headache, blurry vision, slurred speech, difficulty writing over past week or so -Dx'ed with HTN in high school, was medicated for awhile (1 med) stopped taking 5 yrs ago -Head CT negative -Trace urine protein - UA otherwise negative -Given 20mg IVP labetalol, 10mg amlodipine PO and IV drip labetalol started in ED -Discontinued labetalol drip -Differential includes primary hyperaldosteronism and phenochromocytoma -BP check Q1hr -Potassium on low end of normal (3.7) - repeat BMP tonight -TSH 2.481 - Free T4 ordered -UDS negative -Denies licorice, supplements, drug use, excessive caffeine or energy drinks. -24-hour urine metanephrines ordered -Morning aldosterone level, renin/aldosterone ratio, and renin activity ordered -On catapress 0.3 mg patch x1 and PRN Hydralazine -Slowly decrease BP over next 3-4 days -Low sodium diet -Patient and informed about fluctuations in BP at the main goal is not higher than 200s systolic -Will start Maxzide 37.5/25 mg po daily today, Hydralazine 25 mg po BID first dose at 2100 tonight and Amlodipine 10 mg po QHS first dose tonight Elevated troponin -Denies CP, palpitations, SOB -Troponin 0.125 in ED - 0.105 -CK-MB 0.8--> 0.7 (both normal) -Likely due to demand ischemia -12-lead in ED shows sinus tachycardia with LVH and MYRA patterns -Echo unable to do this weekend; consider outpatient after discharge -Reports strong family history of cardiac disease -No additional treatment needed Chronic: Tobacco use disorder -Chews around one can of tobacco daily -Tobacco cessation counseling -Nicotine patch as ordered Obesity -BMI 42.8 -"Biggest he has ever been now" -Glucose 120 - A1C ordered -Fuel Assembler consult -Discussed importance of healthy weight Plan: He is clinically stable Transfer Med-Surg with Tele Routine AM labs No need for PT/OT he is ambulatory-he has been ambulating w/o any issues DVT/PE prophylaxis: ELIZABETH gurrola Other orders as indicated above CM for discharge planning - likely tomorrow Possible d/c in AM Code status:Full code; PCP: he does not have a PCP and primarily resides in [place] - will need to establish
[2017-10-01] MEDS: Potassium Chloride 20 MEQ Tab.ER PO SCH ×2 (09:26→12:42)
[2017-10-01] MEDS: Nicotine 7 MG/24 Hr Patch TRDERM SCH (09:26)
[2017-10-01] MEDS ORDERED: Hydrochlorothiazide/Triamterene 25-37.5 MG Cap PO STA (11:58)
[2017-10-01] MEDS: hydrALAZINE 25 MG Tab PO SCH (20:23)
[2017-10-01] MEDS ORDERED: amLODIPine 10 MG Tab PO SCH (21:00)
[2017-10-01] MEDS ORDERED: Hydrochlorothiazide/Triamterene 25-37.5 MG Cap PO SCH (21:00)
--- NOTE | 2017-10-02 00:05 | PCM.DCSUM1 ---
Discharge Summary - Hospital Course Brief History: Bright Reed is a 37 yo male who presented to ED (09/30/17) with reported nueor-like symptoms that have persisted for most of the week and he's also noted some difficulty writing. He has been on medication for his blood pressure, but he stopped taking them about 5 years ago. No history of known heart disease. He does not smoke cigarettes but he does chew around one can a day. He denies any difficulty with balance, nausea, or vomiting. Does not wear eyeglasses or contacts. No previous similar symptoms. No difficulty with eating or drinking and can swallow normally. He denies any fluid or food coming out the corners of his mouth while eating. Patient was diagnosed with malignant hypertension and was admitted for medical management. - Discharge Data Discharge Date: 10/02/17 Discharge Disposition: Home, Self-Care 01 Condition: Good - Discharge Diagnosis/Problem(s) (1) Elevated troponin I level SNOMED Code(s): 941011475 ICD Code: R74.8 - ABNORMAL LEVELS OF OTHER SERUM ENZYMES Status: Acute Priority: High (2) Malignant hypertension SNOMED Code(s): 87549388 ICD Code: I10 - ESSENTIAL (PRIMARY) HYPERTENSION Status: Resolved Priority: High (3) Obesity, Class III, BMI 40-49.9 (morbid obesity) SNOMED Code(s): 091021591 ICD Code: E66.01 - MORBID (SEVERE) OBESITY DUE TO EXCESS CALORIES Status: Chronic Priority: Medium (4) Tobacco use disorder SNOMED Code(s): 149576511 ICD Code: F17.200 - NICOTINE DEPENDENCE, UNSPECIFIED, UNCOMPLICATED Status : Chronic Priority: Low - Patient Summary/Data Operative Procedure(s) Performed: None Complications: None Consults: Consultations 09/30/17 16:44 Consult to Case Management [CONS] Routine 09/30/17 18:10 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 He presented to the emergency department with stroke-like symptoms but quickly resolved after initiation of labetalol drip. Patient carried a history of hypertension not on medications and had been having abnormal headaches for the past 2-3 months now. His head CT scan showed no acute abnormal findings. Patient was admitted to the unit for more gentle treatment of his malignant hypertension. Slowly he improved on this regimen. Currently we are awaiting results of his aldosterone, aldoterone/renin ratio, renin activity, and metanephrine level. His hospital course was uncomplicated the rest of his chronic medical illness remained stable during this admission. Patient was stable upon discharge. He was provided 2 prescriptions for medical management of his hypertension. He was advised to check his blood pressure at least 3 times a day/3-4 times a week and show his log to his primary care provider on follow-up appointment. He was further advised to practice lifestyle modification to include regular exercise, eating proper diet, good sleeping habits, and weight loss. And most importantly , he was advised to come back or seek immediate care should his symptoms persist or get worse. The patient expressed understanding and in agreement with the plans as discussed above. All questions were answered - Patient Instructions Diet: Heart Healthy Diet, Usual Diet as Tolerated, Weight Loss Diet Activity: As Tolerated Driving: May Drive Today Showering/Bathing: May Shower Notify Provider of: Fever, Increased Pain, Nausea and/or Vomiting Other/Special Instructions: - Please take all new medications as directed. - Resume routine home activities as tolerated. - Avoid excessive stimulants: Caffeinated products, Products with Licorice and Any Synthetic "Uppers". - Eat properly, exercise regularly and lose weight. - Practice good sleep hygiene. - Recommend you check yout blood pressure at least x3 a day and 4-5 times a week. Show log on your follow up appointment with your PCP. - Follow up with your PCP in 2-3 weeks. - Comeback or seek immediate care to the nearest medical facility if your symptoms persist or get worse - Discharge Plan Prescriptions/Med Rec: amLODIPine Besylate [Amlodipine Besylate] 10 mg PO BEDTIME #30 tablet HCTZ/Triamterene [Maxzide 25-37.5 MG] 1 tab PO DAILY #30 tab Home Medications: Home Meds HCTZ/Triamterene [Maxzide 25-37.5 MG] 1 tab PO DAILY #30 tab 10/01/17 [Rx] amLODIPine Besylate [Amlodipine Besylate] 10 mg PO BEDTIME #30 tablet 10/02/17 [ Rx] Patient Handouts: DASH Eating Plan, Hypertension, [id number], Managing Your High Blood Pressure Referrals: PCP,None [Primary Care Provider] - - Discharge Summary/Plan Comment DC Time >30 min.: Yes (45 mins) Discharge Summary/Plan Comment: Discharge to Home - General Info Date of Service: 10/02/17 Admission Dx/Problem (Free Text: Admission Diagnosis/Problem Admission Diagnosis/Problem Malignant hypertension Subjective Update: Follow Up Functional Status: Reports: Pain Controlled, Tolerating Diet, Ambulating, Urinating. Denies: New Symptoms - Review of Systems General: Denies: Fever, Weakness, Fatigue, Malaise, Chills HEENT: Denies: Ear Pain, Eye Pain, Headaches, Visual Changes Pulmonary: Reports: No Symptoms Cardiovascular: Denies: Chest Pain, Dyspnea on Exertion, Lightheadedness Gastrointestinal: Denies: Abdominal Pain, Nausea, Vomiting Genitourinary: Reports: No Symptoms Musculoskeletal: Reports: No Symptoms Skin: Denies: Cyanosis, Mottled, Pallor, Diaphoresis, Bruising, Rash Neurological: Denies: Confusion, Dizziness, Headache, Seizure, Difficulty Walking, Weakness, Gait Disturbance Psychiatric: Denies: Depression, Anxiety, Agitation, Hallucinations Systems Review Comment: No overnight or acute issues. He is doing relatively well. He has no new complaints. His pressures overall are fairly stable. He has no new complaints. - Patient Data Vitals - Most Recent: Last Vital Signs Temp 36.6 C 10/01/17 23:53 Pulse 89 10/01/17 16:00 Resp 16 10/01/17 23:53 BP 119/73 10/01/17 23:53 Pulse Ox 95 10/01/17 23:53 Weight - Most Recent: 119.068 kg I&O - Last 24 hours: Intake & Output 10/01/17 10/01/17 10/02/17 14:59 22:59 06:59 Intake Total 1120 2000 Output Total 1575 900 Balance -455 1100 Lab Results - Last 24 hrs: Laboratory Results - last 24 hr 10/01/17 10/01/17 10/01/17 Range/Units 05:40 05:40 05:40 WBC 9.53 H (4.23-9.07) K/mm3 RBC 5.01 (4.63-6.08) M/mm3 Hgb 13.8 (13.7-17.5) gm/L Hct 40.3 (40.1-51.0) % MCV 80.4 (79.0-92.2) fl MCH 27.5 (25.7-32.2) pg MCHC 34.2 (32.2-35.5) g/dl RDW Std Deviation 41.8 (35.1-43.9) fL Plt Count 287 (163-337) K/mm3 MPV 10.6 (9.4-12.3) fl Neut % (Auto) 59.8 (34.0-67.9) % Lymph % (Auto) 26.2 (21.8-53.1) % [place] % (Auto) 9.4 (5.3-12.2) % Eos % (Auto) 3.9 (0.8-7.0) Baso % (Auto) 0.3 (0.1-1.2) % Neut # (Auto) 5.69 H (1.78-5.38) K/mm3 Lymph # (Auto) 2.50 (1.32-3.57) K/mm3 [place] # (Auto) 0.90 H (0.30-0.82) K/mm3 Eos # (Auto) 0.37 (0.04-0.54) K/mm3 Baso # (Auto) 0.03 (0.01-0.08) K/mm3 Sodium 139 (136-145) mEq/L Potassium 3.5 (3.5-5.1) mEq/L Chloride 104 (98-107) mEq/L Carbon Dioxide 23 (21-32) mEq/L Anion Gap 15.5 H (5-15) BUN 12 (7-18) mg/dL Creatinine 1.0 (0.7-1.3) mg/dL Est Cr Clr Drug Dosing 91.27 mL/min Estimated GFR (MDRD) > 60 (>60) mL/min BUN/Creatinine Ratio 12.0 L (14-18) Glucose 103 (74-106) mg/dL Hemoglobin A1c 5.50 (4.50-6.20) % Calcium 8.8 (8.5-10.1) mg/dL Magnesium 2.1 (1.8-2.4) mg/dl CK-MB (CK-2) 0.7 (0-3.6) ng/ml Troponin I 0.105 H* (0.00-0.056) ng/mL Med Orders - Current: Current Medications Acetaminophen (Tylenol) 650 mg PO Q4H PRN PRN Reason: Pain (Mild 1-3)/fever Amlodipine Besylate (Norvasc) 10 mg PO BEDTIME [facility] Last Admin: 10/01/17 20:22 Dose: 10 mg Clonidine HCl (Catapres-Tts 3) 0.3 mg TRDERM Q7D [facility] Last Admin: 09/30/17 17:50 Dose: 0.3 mg Hydralazine HCl (Apresoline) 20 mg IVPUSH Q4H PRN PRN Reason: Hypertension Last Admin: 10/01/17 10:48 Dose: 20 mg Hydralazine HCl (Apresoline) 25 mg PO Q12HR [facility] Last Admin: 10/01/17 20:23 Dose: 25 mg Labetalol HCl 100 mg/ Sodium (Chloride) 100 mls @ 60 mls/hr IV ASDIRECTED [facility] PRN Reason: 1 MG/MIN Last Infusion: 09/30/17 20:41 Dose: 0 mg/min, 0 mls/hr Lorazepam (Ativan) 0.5 mg PO Q6H PRN PRN Reason: Anxiety Lorazepam (Ativan) 2 mg IVPUSH Q4H PRN PRN Reason: Seizures Lorazepam (Ativan) 1 mg IVPUSH Q6H PRN; Protocol PRN Reason: Anxiety Magnesium Sulfate (Pharmacy To Dose - Magnesium Replacement) 1 dose .XX ASDIRECTED [facility] Metoprolol Tartrate (Lopressor) 5 mg IVPUSH Q4H PRN PRN Reason: Tachycardia Miscellaneous Information (Remove Patch) 1 ea TRDERM Fr@1700 [facility] Miscellaneous Information (Remove Patch) 1 ea TRDERM DAILY [facility] Nicotine (Habitrol) 7 mg TRDERM DAILY [facility] Last Admin: 10/01/17 09:26 Dose: Not Given Ondansetron HCl (Zofran Odt) 4 mg PO Q6H PRN PRN Reason: nausea, able to take PO Ondansetron HCl (Zofran) 4 mg IV Q6H PRN PRN Reason: Nausea/Vomiting Potassium Chloride (Pharmacy To Dose - Potassium Replacement) 1 dose .XX ASDIRECTED [facility] Temazepam (Restoril) 30 mg PO BEDTIME PRN PRN Reason: Insomnia Triamterene/HCTZ (Dyazide 25-37.5 Mg) 1 each PO DAILY [facility] Discontinued Medications Amlodipine Besylate (Norvasc) 10 mg PO ONETIME ONE Stop: 09/30/17 12:53 Last Admin: 09/30/17 13:03 Dose: 10 mg Sodium Chloride (Normal Saline) 1,000 mls @ 100 mls/hr IV ASDIRECTED [facility] Last Admin: 09/30/17 12:28 Dose: 100 mls/hr Labetalol HCl (Normodyne) 20 mg IVPUSH ONETIME ONE PRN Reason: Protocol Stop: 09/30/17 12:54 Last Admin: 09/30/17 13:04 Dose: 20 mg Lorazepam (Ativan) 1 mg IVPUSH ONETIME ONE Stop: 09/30/17 12:16 Last Admin: 09/30/17 12:31 Dose: 1 mg Magnesium Sulfate (Pharmacy To Dose - Magnesium Replacement) 1 dose .XX ASDIRECTED [facility] Potassium Chloride (Pharmacy To Dose - Potassium Replacement) 1 dose .XX ASDIRECTED [facility] Potassium Chloride (Klor-Con M20) 40 meq PO Q4H [facility] Stop: 09/30/17 22:01 Potassium Chloride (Klor-Con M20) 40 meq PO Q4H [facility] Stop: 10/01/17 12:16 Last Admin: 10/01/17 12:42 Dose: 40 meq Triamterene/HCTZ (Dyazide 25-37.5 Mg) 1 each PO BEDTIME [facility] Triamterene/HCTZ (Dyazide 25-37.5 Mg) 1 each PO NOW STA Stop: 10/01/17 11:59 Last Admin: 10/01/17 12:42 Dose: 1 each - Exam General: Reports: Alert, Oriented, Cooperative, No Acute Distress HEENT: Reports: Pupils Equal, Pupils Reactive, EOMI, Mucous Membr. Moist/[place]: Reports: Supple, Trachea Midline, No JVD, No Thyromegaly Lungs: Reports: Clear to Auscultation, Normal Respiratory Effort, Rhonchi Cardiovascular: Reports: Regular Rate, Regular Rhythm GI/Abdominal Exam: Normal Bowel Sounds, Soft, Non-Tender, No Organomegaly, No Distention, No Abnormal Bruit (Male) Exam: Deferred Rectal (Males) Exam: Deferred Back Exam: Reports: Normal Inspection, Decreased Range of Motion Extremities: Normal Inspection, Normal Range of Motion, Non-Tender, No Pedal Edema, Normal Capillary Refill Skin: Reports: Warm, Dry, Intact Neurological: Reports: No New Focal Deficit Psy/Mental Status: Reports: Alert, Normal Affect, Normal Mood *Q Meaningful Use (DIS) - VTE *Q VTE Criteria *Q: - Stroke *Q Stroke Criteria *Q: - AMI *Q AMI Criteria *Q:
[2017-10-02] MEDS: hydrALAZINE 25 MG Tab PO SCH (08:36)
[2017-10-02] MEDS: Nicotine 7 MG/24 Hr Patch TRDERM SCH (08:37)
[2017-10-02] MEDS ORDERED: Hydrochlorothiazide/Triamterene 25-37.5 MG Cap PO SCH (09:00)
[2017-10-02] MEDS ORDERED: REMOVE NICOTINE TRDERM SCH (09:00)
[2017-10-07] MEDS ORDERED: [UNRECOGNIZED DRUG - REMARK] TRDERM SCH (17:00)
== END 2017-10-02 08:45 | disposition home or self-care (01) | DRG 305 ==
LOC: JD.ED 11:59 → JD.ICU 14:32
PROVIDERS: ADMIT Internal Medicine; ATTEND Internal Medicine
DX: I10 Essential (primary) hypertension (principal); Z68.41 Body mass index [BMI] 40.0-44.9, adult; R74.8 Abnormal levels of other serum enzymes; F17.220 Nicotine dependence, chewing tobacco, uncomplicated; E66.01 Morbid (severe) obesity due to excess calories
CPT/HCPCS: 36415; 70450; 70450-26; 71045; 71045-26; 80048; 80053; 80306; 81001; 82088; 82553; 83036; 83735; 83835; 83880; 84244; 84439; 84443; 84484; 85025; 93005; 93010; 96361; 96365; 96375; 96376; 99223; 99232; 99239; 99285-25; A9270-GY; J0360; J2060; J7040